=== PATIENT | female | born 1985 | race Caucasian/White ===

== ENCOUNTER 2018-03-20 15:39 | Outpatient (CLI) | payer OTHER ==
[2018-03-20 16:31] LABS: ADD MAN DIFF? NO
[2018-03-20 16:32] LABS: BASOPHIL # 0.1 10^3/ul (0.0-0.1); BASOPHILS % 0.3 % (0.0-2.0); EOSINOPHILS # 0.1 10^3/ul (0.0-0.5); EOSINOPHILS % 0.9 % (0.0-7.0); HEMATOCRIT 32.4 % (37.0-47.0); HEMOGLOBIN 10.9 g/dl (12.0-16.0); LYMPHOCYTES # 3.3 10^3/ul (0.8-2.9); LYMPHOCYTES % 22.8 % (15.0-51.0); MEAN CORPUSCULAR HEMOGLOBIN 31.1 pg (29.0-33.0); MEAN CORPUSCULAR HGB CONC 33.6 g/dl (32.0-37.0); MEAN CORPUSCULAR VOLUME 92.6 fl (82.0-101.0); MEAN PLATELET VOLUME 10.5 fl (7.4-10.4); MONOCYTE # 0.7 10^3/ul (0.3-0.9); MONOCYTES % 5.1 % (0.0-11.0); NEUTROPHILS % 69.7 % (39.0-77.0); PLATELET COUNT 207 10^3/UL (140-415); RED CELL DISTRIBUTION WIDTH 13.2 % (11.5-14.5)
[2018-03-20 16:32] LABS: WHITE BLOOD COUNT 14.3 10^3/ul (4.8-10.8)
[2018-03-20 16:38] LABS: ADD UMIC YES; UR ASCORBIC ACID NEGATIVE (NEGATIVE); UR BACTERIA FEW /HPF (NONE SEEN); UR BILIRUBIN (Dip) NEGATIVE (NEGATIVE); UR BLOOD (Dip) NEGATIVE (NEGATIVE); UR CLARITY SLIGHTLY CLOUDY (CLEAR); UR COLOR YELLOW (YELLOW); UR GLUCOSE (Dip) NEGATIVE (NEGATIVE); UR KETONES (Dip) NEGATIVE (NEGATIVE); UR LEUKOCYTE ESTERASE (Dip) 2+ Leu/ul (NEGATIVE); UR MUCUS MODERATE /HPF (NONE SEEN); UR NITRITE (Dip) NEGATIVE (NEGATIVE); UR RBC 4 /HPF (0-5); UR SPECIFIC GRAVITY (Dip) 1.019 (1.003-1.030); UR SQUAMOUS EPITHELIAL CELL FEW /HPF (FEW); UR TOTAL PROTEIN (Dip) 1+ mg/dl (NEGATIVE); UR UROBILINOGEN (Dip) 1+ mg/dL (NEGATIVE); UR WBC 9 /HPF (0-5)
== END 2018-03-20 18:04 | disposition home or self-care (01) ==
LOC: OBT 15:39 → L-D 15:40 → OBT 18:04
DX: O62.9 Abnormality of forces of labor, unspecified (principal); Z3A.30 30 weeks gestation of pregnancy
CPT/HCPCS: 76817; 76818; 81001; 85025

== ENCOUNTER 2018-05-20 12:30 | Inpatient (IN) | payer OTHER ==
[2018-05-20] MEDS ORDERED: BUTORPHANOL 1 MG INJ IV (13:00)
[2018-05-20] MEDS ORDERED: METHYLERGONOVINE 0.2 MG INJ IM (13:00)
[2018-05-20] MEDS ORDERED: BUTORPHANOL 2 MG INJ IV (13:00)
[2018-05-20] MEDS ORDERED: CARBOPROST 250 MCG INJ IM (13:00)
[2018-05-20] MEDS ORDERED: LIDOCAINE 1% (MPF) 30 ML INJ INJ (13:00)
[2018-05-20] MEDS ORDERED: OXYTOCIN 30 UNITS/LR 500 ML IV ×2 (13:00)
[2018-05-20] MEDS ORDERED: MISOPROSTOL 200 MCG TAB PR (13:00)
[2018-05-20 14:28] LABS: ADD MAN DIFF? NO
[2018-05-20 14:31] LABS: BASOPHIL # 0.1 10^3/ul (0.0-0.1); BASOPHILS % 0.4 % (0.0-2.0); EOSINOPHILS # 0.1 10^3/ul (0.0-0.5); EOSINOPHILS % 0.5 % (0.0-7.0); HEMATOCRIT 35.2 % (37.0-47.0); HEMOGLOBIN 11.7 g/dl (12.0-16.0); LYMPHOCYTES # 2.7 10^3/ul (0.8-2.9); LYMPHOCYTES % 17.5 % (15.0-51.0); MEAN CORPUSCULAR HEMOGLOBIN 30.8 pg (29.0-33.0); MEAN CORPUSCULAR HGB CONC 33.2 g/dl (32.0-37.0); MEAN CORPUSCULAR VOLUME 92.6 fl (82.0-101.0); MEAN PLATELET VOLUME 11.2 fl (7.4-10.4); MONOCYTE # 0.9 10^3/ul (0.3-0.9); MONOCYTES % 5.5 % (0.0-11.0); NEUTROPHIL # 11.7 10^3/ul (1.6-7.5); NEUTROPHILS % 74.4 % (39.0-77.0); PLATELET COUNT 189 10^3/UL (140-415); RED CELL DISTRIBUTION WIDTH 13.4 % (11.5-14.5)
[2018-05-20 14:31] LABS: WHITE BLOOD COUNT 15.7 10^3/ul (4.8-10.8)
[2018-05-20 14:45] LABS: INR 0.91; PROTIME 12.4 Sec (11.9-14.9)
[2018-05-20 14:46] LABS: PARTIAL THROMBOPLASTIN TIME 25.4 Sec (23.0-35.0)
[2018-05-20 15:30] LABS: HEPATITIS B SURFACE ANTIGEN NEGATIVE (NEGATIVE)
[2018-05-20 15:49] LABS: AMPHETAMINE/METHAMPHETAMINE Negative (NEGATIVE); BENZODIAZEPINES Negative (NEGATIVE); CANNABINOIDS Positive (NEGATIVE); COCAINE Negative (NEGATIVE); OPIATES Negative (NEGATIVE)
[2018-05-20 16:04] LABS: BARBITURATES Negative (NEGATIVE)
[2018-05-20] MEDS: MISOPROSTOL 50 MCG CAPSULE PO ×3 (16:37→21:00)
[2018-05-20] MEDS: LACTATED RINGER'S 1,000 ML IV ×2 (19:20→21:02)
[2018-05-20 19:44] LABS: RAPID PLASMA REAGIN NONREACTIVE (NR)
[2018-05-20] MEDS: FAMOTIDINE 20 MG INJ IV (21:00)
[2018-05-20] MEDS: ONDANSETRON 4 MG INJ IV (23:20)
[2018-05-21] MEDS: LACTATED RINGER'S 1,000 ML IV ×5 (00:17→19:51)
[2018-05-21] MEDS: MISOPROSTOL 50 MCG CAPSULE PO ×4 (01:00→13:00)
[2018-05-21] MEDS ORDERED: FENTAnyl 2MCG/ML-ROPIV 0.2% 100 ML (01:24)
[2018-05-21] MEDS ORDERED: HYDROmorphONE 0.5 MG/0.5 ML SYG IV ×2 (01:30)
[2018-05-21] MEDS ORDERED: ONDANSETRON 4 MG INJ IV (01:30)
[2018-05-21] MEDS ORDERED: NALOXONE (0.4 MG/ML) INJ IV (01:30)
[2018-05-21] MEDS ORDERED: DIPHENHYDRAMINE 50 MG INJ IV (01:30)
[2018-05-21] MEDS ORDERED: KETOROLAC 30 MG INJ IV (01:30)
[2018-05-21] MEDS: FAMOTIDINE 20 MG INJ IV ×2 (09:09→21:45)
[2018-05-21] MEDS: ONDANSETRON 4 MG INJ IV ×2 (09:09→15:29)
[2018-05-21] MEDS: FENTAnyl 2MCG/ML-ROPIV 0.2% 100 ML BAG EPI (10:22)
[2018-05-21] MEDS: OXYTOCIN 30 UNITS/LR 500 ML IV ×2 (15:09→21:23)
[2018-05-21] MEDS: MINERAL OIL LIGHT 10 ML VIAL TOP (20:50)
[2018-05-21] MEDS ORDERED: MINERAL OIL LIGHT 10 ML VIAL (20:51)
[2018-05-21] MEDS ORDERED: CEFAZOLIN 2 GM/50 ML (PMX) 50 ML IVPB (21:03)
[2018-05-21] MEDS: CEFAZOLIN 2 GM/50 ML (PMX) 50 ML IVPB (21:06)
[2018-05-21] MEDS: IBUPROFEN 600 MG TAB PO (21:45)
[2018-05-21] MEDS: KETOROLAC 30 MG INJ IV (22:43)
[2018-05-21] MEDS: AZITHROMYCIN 250 MG TAB PO (22:46)
[2018-05-21] MEDS: LACTATED RINGER'S 1,000 ML IV* (23:11)
[2018-05-21] MEDS ORDERED: ZOLPIDEM 5 MG TAB PO (23:30)
[2018-05-21] MEDS ORDERED: CARBOPROST 250 MCG INJ IM (23:30)
[2018-05-21] MEDS ORDERED: DIBUCAINE 1% 30 GM OINT TOP (23:30)
[2018-05-21] MEDS ORDERED: HYDROCODONE/APAP (5/325) TAB PO ×2 (23:30)
[2018-05-21] MEDS ORDERED: LANOLIN HPA 1 PKT TOP (23:30)
[2018-05-21] MEDS ORDERED: MISOPROSTOL 200 MCG TAB PR (23:30)
[2018-05-21] MEDS ORDERED: METHYLERGONOVINE 0.2 MG INJ IM (23:30)
[2018-05-21] MEDS ORDERED: OXYTOCIN 30 UNITS/LR 500 ML IV (23:30)
[2018-05-22] MEDS: CEPHALEXIN 500 MG CAP PO ×5 (00:16→23:55)
[2018-05-22] MEDS: IBUPROFEN 600 MG TAB PO ×5 (05:49→23:53)
[2018-05-22] MEDS: BENZOCAINE 20% 56 ML SPRAY TOP (05:49)
[2018-05-22] MEDS: WITCH HAZEL/GLYCERIN PAD PR (05:49)
[2018-05-22 07:13] LABS: ADD MAN DIFF? NO
[2018-05-22 07:16] LABS: WHITE BLOOD COUNT 24.5 10^3/ul (4.8-10.8)
[2018-05-22 07:16] LABS: BASOPHIL # 0.1 10^3/ul (0.0-0.1); BASOPHILS % 0.4 % (0.0-2.0); EOSINOPHILS % 0.1 % (0.0-7.0); HEMATOCRIT 35.7 % (37.0-47.0); HEMOGLOBIN 11.9 g/dl (12.0-16.0); LYMPHOCYTES # 3.2 10^3/ul (0.8-2.9); LYMPHOCYTES % 13.2 % (15.0-51.0); MEAN CORPUSCULAR HEMOGLOBIN 30.5 pg (29.0-33.0); MEAN CORPUSCULAR HGB CONC 33.3 g/dl (32.0-37.0); MEAN CORPUSCULAR VOLUME 91.5 fl (82.0-101.0); MEAN PLATELET VOLUME 11.9 fl (7.4-10.4); MONOCYTE # 1.4 10^3/ul (0.3-0.9); MONOCYTES % 5.7 % (0.0-11.0); NEUTROPHIL # 19.5 10^3/ul (1.6-7.5); NEUTROPHILS % 79.8 % (39.0-77.0); PLATELET COUNT 174 10^3/UL (140-415); RED CELL DISTRIBUTION WIDTH 13.6 % (11.5-14.5)
[2018-05-22] MEDS: MAGNESIUM HYDROXIDE 30ML CUP PO ×2 (08:52→23:53)
[2018-05-22] MEDS: SENNA/DOCUSATE NA (8.6MG/50MG) TAB PO ×2 (08:52→23:53)
[2018-05-23] MEDS: CEPHALEXIN 500 MG CAP PO ×2 (05:47→12:52)
[2018-05-23] MEDS: IBUPROFEN 600 MG TAB PO (05:48)
[2018-05-23 08:14] LABS: ADD MAN DIFF? NO
[2018-05-23 08:22] LABS: BASOPHIL # 0.1 10^3/ul (0.0-0.1); BASOPHILS % 0.6 % (0.0-2.0); EOSINOPHILS # 0.1 10^3/ul (0.0-0.5); EOSINOPHILS % 0.6 % (0.0-7.0); HEMATOCRIT 33.4 % (37.0-47.0); HEMOGLOBIN 10.9 g/dl (12.0-16.0); LYMPHOCYTES % 19.1 % (15.0-51.0); MEAN CORPUSCULAR HEMOGLOBIN 30.5 pg (29.0-33.0); MEAN CORPUSCULAR HGB CONC 32.6 g/dl (32.0-37.0); MEAN CORPUSCULAR VOLUME 93.6 fl (82.0-101.0); MEAN PLATELET VOLUME 11.8 fl (7.4-10.4); MONOCYTE # 0.9 10^3/ul (0.3-0.9); MONOCYTES % 5.5 % (0.0-11.0); NEUTROPHIL # 11.5 10^3/ul (1.6-7.5); PLATELET COUNT 196 10^3/UL (140-415); RED BLOOD COUNT 3.57 10^6/ul (4.20-5.40); RED CELL DISTRIBUTION WIDTH 13.7 % (11.5-14.5)
[2018-05-23 08:22] LABS: WHITE BLOOD COUNT 15.8 10^3/ul (4.8-10.8)
[2018-05-23] MEDS: DIPHTH/TET/ACEL PERTUSS (ADULT) 0.5 ML VIAL IM* (09:00)
[2018-05-23] MEDS: SENNA/DOCUSATE NA (8.6MG/50MG) TAB PO (09:00)
[2018-05-23] MEDS: MAGNESIUM HYDROXIDE 30ML CUP PO (09:00)
[2018-05-23] MEDS: VARICELLA VACCINE LIVE/PF 1,350 UNIT/0.5 ML ML SC* (09:00)
[2018-05-23] MEDS: MEASLES,MUMPS,RUBELLA VACCINE INJ SC* (09:00)
== END 2018-05-23 15:26 | disposition home or self-care (01) | DRG 806 ==
LOC: L-D 12:30 → PP1 05-21 22:48
PROVIDERS: Obstetrics & Gynecology
PROC: 10E0XZZ Delivery of Products of Conception, External Approach (ICD-10-PCS; principal; 2018-05-21)
PROC: 0UQKXZZ Repair Hymen, External Approach (ICD-10-PCS; 2018-05-21)
PROC: 0UQG7ZZ Repair Vagina, Via Natural or Artificial Opening (ICD-10-PCS; 2018-05-21)
DX: O36.5930 Maternal care for other known or suspected poor fetal growth, third trimester, not applicable or unspecified (principal); O71.4 Obstetric high vaginal laceration alone; Z37.0 Single live birth; Z3A.39 39 weeks gestation of pregnancy
CPT/HCPCS: 62319; 76815; 80307; 85025; 85610; 85730; 86592; 86850; 86900; 86901; 87340; 90716; 99464